=== PATIENT | male | born 1990 | race Hispanic/Latino ===

== ENCOUNTER 2020-08-15 11:00 | Emergency (ER) | payer BC ==
[2020-08-15] MEDS ORDERED: Ketorolac Tromethamine 30 MG/ML VIAL ONE (13:01)
== END 2020-08-15 11:48 | disposition home or self-care (01) ==
LOC: ERS 11:00
DX: M54.16 Radiculopathy, lumbar region (principal)
CPT/HCPCS: 96372; 99283; J1885